=== PATIENT | female | born 1975 | race Caucasian/White ===

== ENCOUNTER → 2018-12-22 | Outpatient (CLI) | payer MEDICAID, SELFPAY ==
--- NOTE | 2018-12-22 10:42 | ECHOD_ITS ---
Reason For Study: SOB Procedure This was a 2D Doppler, Color Flow transthoracic echocardiogram. The study was technically difficult. Contrast injection was performed. Exam performed in department. Left Ventricle Normal LV size. Left ventricular systolic function is normal. The estimated ejection fraction is 65 %. Transmitral doppler flow suggestive of impaired relaxation of left ventricle. No regional wall motion abnormalities noted. Right Ventricle Normal RV size. Normal systolic function. Atria Normal left atrium. Normal right atrium. No doppler evidence for ASD. Mitral Valve There is no mitral annular calcification. Normal mitral valve. Mild-Moderate (1-2+) mitral valve insufficiency. Tricuspid Valve Normal tricuspid valve. Trivial tricuspid valve insufficiency. Unable to estimate RV systolic pressure/pulmonary artery pressure due to technically difficult study. Aortic Valve The aortic valve is not well visualized. Pulmonic Valve The pulmonic valve is not well visualized. Great Vessels The aortic root is not well visualized. Pericardium/Pleural No pericardial effusion. Medication 22 gauge I.V. with prn adaptor inserted into right arm. Diluted definity 3ml given slow IV push to enhance endocardial definition. MMode/2D Measurements & Calculations LVIDd: 4.8 cm IVSd: 1.1 cm LAV(MOD-bp): 43.5 ml LVIDs: 3.2 cm LVPWd: 1.2 cm FS: 32.1 % LAV(MOD-bp) Indexed: 22.6 ml/m2 LAV(MOD-sp2): 37.7 ml LAV(MOD-sp4): 46.3 ml LA A4 area: 17.6 cm2 RA A4 area: 14.5 cm2 Time Measurements MV dec time: 0.21 sec Doppler Measurements & Calculations MV E max garcia: 82.0 cm/sec Lat Peak E' Garcia: 11.6 cm/sec Med Peak E' Garcia: 10.7 cm/sec MV A max garcia: 100.2 cm/sec E/E' lat: 7.1 E/E' med: 7.7 MV E/A: 0.82 MV V2 max: 107.9 cm/sec MV P1/2t max garcia: 107.9 cm/sec Ao V2 max: 113.6 cm/sec MV max P.7 mmHg MV P1/2t: 106.5 msec Ao max P.2 mmHg MV V2 mean: 60.3 cm/sec MV mean P.7 mmHg MV dec slope: 296.8 cm/sec2 MV V2 VTI: 33.7 cm MVA(P1/2t): 2.1 cm2 LV V1 max: 93.5 cm/sec PA V2 max: 68.4 cm/sec LV V1 max P.5 mmHg Interpretation Summary The study was technically difficult. Contrast injection was performed. Left ventricular systolic function is normal. The estimated ejection fraction is 65 %. Mild-Moderate (1-2+) mitral valve insufficiency. Trivial tricuspid valve insufficiency. Unable to estimate RV systolic pressure/pulmonary artery pressure due to technically difficult study. Transmitral doppler flow suggestive of impaired relaxation of left ventricle Ordering Physician: Raoul Copeland Referring Physician: Raoul Copeland Performed By: Brodwolf, Quinn, RCS
--- NOTE | 2018-12-22 12:25 | STRESSREP_ITS ---
Stress Test Report Date: 12-22-18 Procedure: Exercise tolerance test Indications: Chest pain; shortness of breath/dyspnea Consent: Per the patient Procedure: The patient exercised on a Cricket protocol for 6 minutes completing Stage II achieving a peak heart rate of 164 bpm (91 % predicted maximal heart rate) with a peak blood pressure 164/70 mmHg and a peak MET capacity of approximately 7 MET's. The baseline ECG demonstrated normal sinus rhythm. The peak exercise ECG demonstrated no obvious ECG changes. There were no cardiac dysrhythmias pretest, during exercise, or recovery. The functional capacity was considered average. The patient had no complaint of chest discomfort during exercise or recovery. The examination was discontinued secondary to leg discomfort. Impression: 1. Technically adequate (percent predicted maximal heart rate greater than 85%) exercise tolerance test 2. Peak exercise ECG with no obvious ECG changes 3. There were no cardiac dysrhythmias during exercise or recovery This note was generated with true[x] Mediaation software. It may contain incorrect words, spelling, and punctuation that were not noted in checking the note before signing.
== END | disposition home or self-care (01) ==
LOC: CVS 10:38
PROVIDERS: Family Provider Student in an Organized Health Care Education/Training Program; PCP Student in an Organized Health Care Education/Training Program; Referring Provider Student in an Organized Health Care Education/Training Program; Visit Provider Student in an Organized Health Care Education/Training Program
DX: R06.02 Shortness of breath (principal); R00.2 Palpitations
CPT/HCPCS: 93017; 93306; Q9957; A4216; C8929

== ENCOUNTER → 2023-01-25 | Outpatient (CLI) | payer MEDICAID, SELFPAY ==
--- NOTE | 2023-01-25 12:51 | ECHOCS_ITS ---
Version 2 Reason For Study: Mitral Insufficiency Procedure This was a 2D Doppler, Color Flow transthoracic echocardiogram. The study was technically difficult. Contrast injection was performed. Exam performed in department. Left Ventricle Normal LV size. Left ventricular systolic function is normal. The estimated ejection fraction is 55 %. Stage 1 diastolic dysfunction. No regional wall motion abnormalities noted. Right Ventricle Normal RV size. Normal systolic function. Atria Normal left atrium. Normal right atrium. Mitral Valve Normal mitral valve. Tricuspid Valve Normal tricuspid valve. Aortic Valve The aortic valve is not well visualized. Pulmonic Valve Normal pulmonic valve. Great Vessels Normal aortic root. Pericardium/Pleural No pericardial effusion. Medication 20 gauge I.V. with prn adaptor inserted into right arm. Diluted definity 2ml given slow IV push to enhance endocardial definition. MMode/2D Measurements & Calculations LVIDd: 4.1 cm IVSd: 0.78 cm Ao root diam: 3.1 cm LVIDs: 3.1 cm LVPWd: 1.1 cm LA dimension: 3.8 cm FS: 24.0 % LAV(MOD-bp): 42.2 ml LVAd ap4: 25.4 cm2 SV(MOD-sp4): 45.0 ml LAV(MOD-bp) Indexed: 22.1 ml/m2 LVLd ap4: 7.4 cm LAV(MOD-sp2): 43.6 ml EDV(MOD-sp4): 71.3 ml LAV(MOD-sp4): 38.5 ml EDV(sp4-el): 73.6 ml LVAs ap4: 13.3 cm2 LVLs ap4: 5.7 cm ESV(MOD-sp4): 26.3 ml ESV(sp4-el): 26.4 ml EF(MOD-sp4): 63.1 % EF(sp4-el): 64.1 % SV(sp4-el): 47.2 ml LA A4 area: 15.8 cm2 RA A4 area: 14.2 cm2 Time Measurements MV dec time: 0.17 sec Doppler Measurements & Calculations MV E max garcia: 64.9 cm/sec Lat Peak E' Garcia: 11.9 cm/sec Med Peak E' Garcia: 8.5 cm/sec MV A max garcia: 77.9 cm/sec E/E' lat: 5.5 E/E' med: 7.7 MV E/A: 0.83 MV V2 max: 92.8 cm/sec MV P1/2t max garcia: 87.7 cm/sec Ao V2 max: 110.4 cm/sec MV max P.4 mmHg MV P1/2t: 73.7 msec Ao max P.9 mmHg MV V2 mean: 59.5 cm/sec Ao V2 mean: 72.3 cm/sec MV mean P.6 mmHg MV dec slope: 348.9 cm/sec2 Ao mean P.5 mmHg MV V2 VTI: 27.0 cm MVA(P1/2t): 3.0 cm2 Ao V2 VTI: 22.9 cm AV (velocity ratio): 0.80 LV V1 max: 95.3 cm/sec MR max garcia: 486.7 cm/sec PA V2 max: 82.1 cm/sec LV V1 max P.6 mmHg MR max P.7 mmHg PA V2 mean: 60.7 cm/sec LV V1 mean P.0 mmHg LV V1 mean: 65.1 cm/sec LV V1 VTI: 18.2 cm ECHO/Echo Complete W/ Contrast Interpretation Summary Normal LV size. Left ventricular systolic function is normal. The estimated ejection fraction is 55 %. Stage 1 diastolic dysfunction. Contrast injection was performed. Ordering Physician: Deshawn Frey Referring Physician: Deshawn Frey Performed By: Quinn Solorzano RCS
== END | disposition home or self-care (01) ==
LOC: CVS 12:47
PROVIDERS: PCP Student in an Organized Health Care Education/Training Program; Referring Provider Internal Medicine Cardiovascular Disease; Visit Provider Internal Medicine Cardiovascular Disease
DX: I34.0 Nonrheumatic mitral (valve) insufficiency (principal)
CPT/HCPCS: 93306; Q9957; A4216; C8929